=== PATIENT | female | born 1935 | race Caucasian/White ===

== ENCOUNTER 2017-01-26 18:04 | Inpatient (IN) ==
[2017-01-26 19:29] LABS: MANUAL DIFF NEEDED? NO
[2017-01-26 19:38] LABS: BASO% 0.4 % (0.0-0.8); EOS# 0.18 X1000 (0.0-0.7); EOS% 2.1 % (0.0-10.0); HEMATOCRIT 40.9 % (37.0-47.0); HEMOGLOBIN 13.4 g/dL (12.0-16.0); IMM GRAN# 0.02 X1000 (0.0-0.04); IMM GRAN% 0.2 % (0.0-0.5); LYMPH# 2.04 X1000 (1.2-3.4); MCH 28.8 PG (27-31); MCHC 32.8 g/dL (33-37); MONO% 7.1 % (1.7-9.3); MPV 12.6 FL (7.4-10.4); NEUT% 66.2 % (42.2-75.2); PLT 245 X1000 (130-400); RBC 4.65 XMIL (4.2-5.4)
[2017-01-26 20:01] LABS: ACETAMINOPHEN < 1.2 ug/mL (10-30); AGAP 15; ALBUMIN 3.9 g/dL (3.5-5.0); ALKALINE PHOSPHATASE 70 U/L (32-104); BUN 20 mg/dL (8-22); CALCIUM 9.2 mg/dL (8.8-10.2); CHLORIDE 100 mmol/L (98-107); COSMO 283; GOT 12 U/L (10-30); GPT 12 U/L (10-36); MAGNESIUM 1.8 mg/dL (1.5-2.7); POTASSIUM 3.8 mmol/L (3.5-5.1); SODIUM 141 mmol/L (136-145); TCO2 26 mmol/L (25-35); TOTAL BILIRUBIN 0.63 mg/dL (0.20-1.00); TOTAL PROTEIN 7.1 g/dL (6.3-8.3)
[2017-01-26 20:52] LABS: FREE T4 1.5 ng/dL (0.93-1.70)
[2017-01-26 21:17] LABS: URINE MICRO REVIEW NEEDED? NO; URINE SOURCE CATH
[2017-01-26 21:24] LABS: BILIRUBIN URINE NEGATIVE (NEGATIVE); BLOOD URINE NEGATIVE (NEGATIVE); COLOR YELLOW; GLUCOSE URINE NEGATIVE (NEGATIVE); LEUKOCYTES URINE TRACE (NEGATIVE); NITRITE URINE NEGATIVE (NEGATIVE); PH URINE 5.5; PROTEIN URINE TRACE mg/dL (NEGATIVE); SP GRAVITY URINE 1.015; TURBIDITY URINE CLEAR (CLEAR); UROBILINOGEN URINE 2 mg/dL (NORMAL)
[2017-01-26 21:26] LABS: UR EPITHELIAL CELLS <10 /HPF (<10); URINE BACTERIA NEGATIVE /HPF; URINE CULTURE NEEDED? YES; URINE RBC <10 /HPF (<10); URINE WBC <10 /HPF (<10)
[2017-01-26 23:01] LABS: UR AMPHETAMINES QUAL NONE DETECTED (NONE DETECT); UR BARBITUATES QUAL NONE DETECTED (NONE DETECT); UR BENZODIAZEPIN QUAL NONE DETECTED (NONE DETECT); UR CANNABINOIDS QUAL NONE DETECTED (NONE DETECT); UR COCAINE QUAL NONE DETECTED (NONE DETECT); UR METHADONE QUAL NONE DETECTED (NONE DETECT); UR OPIATES QUAL NONE DETECTED (NONE DETECT); UR OXYCODONE QUAL NONE DETECTED (NONE DETECT); UR PCP QUAL NONE DETECTED (NONE DETECT)
[2017-01-27] MEDS ORDERED: ATIVAN PO ONE (00:40)
[2017-01-27] MEDS ORDERED: ZOFRAN IM/IV PRN (19:56)
[2017-01-27] MEDS ORDERED: MORPHINE IM/IV PRN (19:57)
[2017-01-28] MEDS: D5 1/2 NS 1,000 ML IV SCH ×3 (01:47→21:31)
[2017-01-28] MEDS ORDERED: ALEVE PO PRN (09:24)
[2017-01-28] MEDS ORDERED: BENADRYL PO PRN (09:24)
[2017-01-28] MEDS ORDERED: NORCO-7.5 PO PRN (09:32)
[2017-01-28] MEDS: LOPRESSOR PO SCH ×2 (11:19→21:31)
[2017-01-28] MEDS: ASPIRIN EC PO SCH (11:19)
[2017-01-28] MEDS: DEPAKOTE PO SCH ×2 (11:21→21:33)
[2017-01-28] MEDS: NUEDEXTA 20-10 MG CAPSULE PO SCH ×2 (11:21→21:33)
[2017-01-28] MEDS: XARELTO PO SCH (11:21)
[2017-01-28] MEDS: SEROQUEL PO SCH ×2 (11:21→21:33)
[2017-01-28] MEDS: VITAMIN C PO SCH (11:21)
[2017-01-29] MEDS: PROTONIX PO SCH (06:00)
[2017-01-29] MEDS: ASPIRIN EC PO SCH (09:13)
[2017-01-29] MEDS: VITAMIN C PO SCH (09:14)
[2017-01-29] MEDS: XARELTO PO SCH (09:14)
[2017-01-29] MEDS: SEROQUEL PO SCH (09:14)
[2017-01-29] MEDS: LOPRESSOR PO SCH (09:15)
[2017-01-29] MEDS: NUEDEXTA 20-10 MG CAPSULE PO SCH (09:15)
[2017-01-29] MEDS: DEPAKOTE PO SCH (09:16)
[2017-01-29] MEDS: D5 1/2 NS 1,000 ML IV SCH (10:34)
[2017-01-29] MEDS ORDERED: ATIVAN ONE (20:41)
[2017-01-29] MEDS: STERILE WATER INJ. INJ PRN (21:44)
[2017-01-29] MEDS: GEODON IM PRN (21:44)
[2017-01-30] MEDS: DEPAKOTE PO SCH ×3 (00:39→21:23)
[2017-01-30] MEDS: LOPRESSOR PO SCH ×3 (00:40→21:24)
[2017-01-30] MEDS: NUEDEXTA 20-10 MG CAPSULE PO SCH ×3 (00:40→21:24)
[2017-01-30] MEDS: D5 1/2 NS 1,000 ML IV SCH ×3 (00:41→23:27)
[2017-01-30] MEDS: SEROQUEL PO SCH ×3 (00:41→21:24)
[2017-01-30] MEDS: GEODON IM PRN (04:04)
[2017-01-30] MEDS: STERILE WATER INJ. INJ PRN (04:04)
[2017-01-30] MEDS: XARELTO PO SCH (08:01)
[2017-01-30] MEDS: ASPIRIN EC PO SCH (08:01)
[2017-01-30] MEDS: VITAMIN C PO SCH (08:01)
[2017-01-30] MEDS: PROTONIX PO SCH (08:03)
[2017-01-31] MEDS: PROTONIX PO SCH (06:25)
[2017-01-31] MEDS: XARELTO PO SCH (09:41)
[2017-01-31] MEDS: VITAMIN C PO SCH (09:41)
[2017-01-31] MEDS: ASPIRIN EC PO SCH (09:41)
[2017-01-31] MEDS: LOPRESSOR PO SCH ×2 (09:42→21:06)
[2017-01-31] MEDS: DEPAKOTE PO SCH ×2 (09:42→21:09)
[2017-01-31] MEDS: SEROQUEL PO SCH ×2 (09:42→21:10)
[2017-01-31] MEDS: NUEDEXTA 20-10 MG CAPSULE PO SCH ×2 (09:42→21:10)
[2017-01-31] MEDS: TYLENOL PO PRN ×2 (12:43→22:21)
[2017-01-31] MEDS: D5 1/2 NS 1,000 ML IV SCH (20:07)
[2017-02-01] MEDS: D5 1/2 NS 1,000 ML IV SCH ×2 (04:19→14:04)
[2017-02-01] MEDS: PROTONIX PO SCH (07:45)
[2017-02-01] MEDS: LOPRESSOR PO SCH ×2 (09:39→20:13)
[2017-02-01] MEDS: VITAMIN C PO SCH (09:40)
[2017-02-01] MEDS: XARELTO PO SCH (09:40)
[2017-02-01] MEDS: ASPIRIN EC PO SCH (09:40)
[2017-02-01] MEDS: NUEDEXTA 20-10 MG CAPSULE PO SCH ×2 (09:45→20:13)
[2017-02-01] MEDS: SEROQUEL PO SCH ×2 (09:45→20:13)
[2017-02-01] MEDS: DEPAKOTE PO SCH ×2 (09:45→20:13)
[2017-02-01] MEDS: ATIVAN IM PRN (18:31)
[2017-02-01] MEDS: GEODON IM PRN (19:09)
[2017-02-02] MEDS: D5 1/2 NS 1,000 ML IV SCH (02:57)
[2017-02-02] MEDS: PROTONIX PO SCH (06:16)
[2017-02-02] MEDS: LOPRESSOR PO SCH (10:24)
[2017-02-02] MEDS: XARELTO PO SCH (10:25)
[2017-02-02] MEDS: DEPAKOTE PO SCH (10:25)
[2017-02-02] MEDS: NUEDEXTA 20-10 MG CAPSULE PO SCH (10:26)
[2017-02-02] MEDS: ASPIRIN EC PO SCH (10:26)
[2017-02-02] MEDS: VITAMIN C PO SCH (10:26)
[2017-02-02] MEDS: SEROQUEL PO SCH (10:27)
[2017-02-02] MEDS: TYLENOL PO PRN (10:27)
[2017-02-03] MEDS: DEPAKOTE PO SCH ×3 (03:30→21:26)
[2017-02-03] MEDS: NUEDEXTA 20-10 MG CAPSULE PO SCH ×3 (03:30→21:26)
[2017-02-03] MEDS: D5 1/2 NS 1,000 ML IV SCH ×2 (03:30→17:56)
[2017-02-03] MEDS: LOPRESSOR PO SCH ×3 (03:31→21:14)
[2017-02-03] MEDS: SEROQUEL PO SCH ×3 (03:31→21:27)
[2017-02-03] MEDS: PROTONIX PO SCH (07:17)
[2017-02-03] MEDS: XARELTO PO SCH (09:05)
[2017-02-03] MEDS: ASPIRIN EC PO SCH (09:05)
[2017-02-03] MEDS: VITAMIN C PO SCH (09:05)
[2017-02-03] MEDS: TYLENOL PO PRN (21:18)
[2017-02-04] MEDS: PROTONIX PO SCH (06:47)
[2017-02-04] MEDS: DEPAKOTE PO SCH ×2 (09:28→21:54)
[2017-02-04] MEDS: D5 1/2 NS 1,000 ML IV SCH ×2 (09:28→15:59)
[2017-02-04] MEDS: NUEDEXTA 20-10 MG CAPSULE PO SCH ×2 (09:29→21:54)
[2017-02-04] MEDS: SEROQUEL PO SCH ×2 (09:29→21:55)
[2017-02-04] MEDS: ASPIRIN EC PO SCH (09:30)
[2017-02-04] MEDS: XARELTO PO SCH (09:30)
[2017-02-04] MEDS: LOPRESSOR PO SCH ×2 (09:30→20:28)
[2017-02-04] MEDS: VITAMIN C PO SCH (09:30)
[2017-02-04] MEDS ORDERED: STERILE WATER INJ. ONE (17:00)
[2017-02-04] MEDS: GEODON IM PRN (17:04)
[2017-02-04] MEDS: VENTOLIN HFA INH PRN (19:03)
[2017-02-04] MEDS: TYLENOL PO PRN (20:28)
[2017-02-05] MEDS: D5 1/2 NS 1,000 ML IV SCH (06:30)
[2017-02-05] MEDS: PROTONIX PO SCH (06:30)
[2017-02-05] MEDS: ASPIRIN EC PO SCH (08:30)
[2017-02-05] MEDS: XARELTO PO SCH (08:35)
[2017-02-05] MEDS: LOPRESSOR PO SCH ×2 (08:35→20:23)
[2017-02-05] MEDS: VITAMIN C PO SCH (08:35)
[2017-02-05] MEDS: SEROQUEL PO SCH (14:36)
[2017-02-05] MEDS: NUEDEXTA 20-10 MG CAPSULE PO SCH (14:36)
[2017-02-05] MEDS: DEPAKOTE PO SCH (14:37)
[2017-02-05] MEDS: TYLENOL PO PRN (20:24)
[2017-02-06] MEDS: D5 1/2 NS 1,000 ML IV SCH ×2 (00:18→05:39)
[2017-02-06] MEDS: SEROQUEL PO SCH ×2 (00:19→08:37)
[2017-02-06] MEDS: NUEDEXTA 20-10 MG CAPSULE PO SCH ×2 (00:19→08:37)
[2017-02-06] MEDS: DEPAKOTE PO SCH ×2 (00:19→08:36)
[2017-02-06] MEDS: PROTONIX PO SCH (05:39)
[2017-02-06 08:25] VITALS: BP 109/66
[2017-02-06] MEDS: VENTOLIN HFA INH PRN (08:34)
[2017-02-06] MEDS: ASPIRIN EC PO SCH (08:35)
[2017-02-06] MEDS: LOPRESSOR PO SCH (08:35)
[2017-02-06] MEDS: VITAMIN C PO SCH (08:37)
[2017-02-06] MEDS: XARELTO PO SCH (08:37)
[2017-02-06] MEDS: TYLENOL PO PRN (10:27)
[2017-02-06] MEDS ORDERED: IMODIUM PO PRN (14:36)
[2017-02-06] MEDS: GEODON IM PRN (18:01)
[2017-02-06] MEDS: ATIVAN IM PRN (18:01)
== END 2017-02-06 18:00 ==
LOC: ED 18:04 → 3N 01-27 18:15
PROVIDERS: ADMIT Internal Medicine; ATTEND Internal Medicine